=== PATIENT | male | born 1960 | race Caucasian/White ===

== ENCOUNTER 2022-07-27 17:04 | Outpatient (CLI) | payer BC, SELFPAY ==
[2022-07-27 17:13] VITALS: BP 105/70; PULSE 68; RESP 20; TEMP 36.2; O2SAT 95
[2022-07-27 18:00] VITALS: PULSE 60; O2SAT 99
--- NOTE | 2022-07-27 18:00 | PDOC.PAIN_ITS ---
Pain Clinic Procedure Note Procedure Note Procedure Note: ULTRASOUND GUIDED BILATERAL GLUTEUS MEDIUS TENDON NEEDLING Pre-Procedural Evaluation: Celestino Zepeda has been referred to the [facility] for an Ultrasound Guided bilateral gluteus medius tendon needling injection for a chief complaint of bilateral lateral hip pain. Pre-procedure Pain Score: 6/10 Dx: Bilateral Gluteus medius tendonopathy Patient was interviewed and the medical record reviewed. There were no medical, pharmacologic, radiographic, or other structural contraindications to preforming an ultrasound guided injection. Risks and expected side effects as well as potential benefits of the procedure were reviewed. The patient consent form was signed and witnessed. Standard time-out procedure was performed. The use of direct ultrasound visualization of the needle (rather than a non- guided injection) was required to increase patient safety by excluding inadvertent intramuscular, intratendinous, or intraneural needle placement and minimizing bleeding by avoiding osteochondral or vascular injury from the needle. Additionally, the increased accuracy of placement may increase clinical effectiveness and will allow higher diagnostic specificity when evaluating effectiveness of this injection. Procedure Description: The patient was placed in the left lateral recumbant position and automated blood pressure cuff and pulse oximeter applied for monitoring during the procedure and recorded in the medical record. Pre-injection ultrasound scanning of the area of interest was performed using linear transducer, identifying relevant anatomy, landmarks, and neurovascular structures allowing for optimal needle path. The site was then prepared in the usual sterile fashion, using thorough Chlorhexadine preparation of the skin and sterile draping. The same ultrasound transducer was then passed into the sterile field using sterile probe cover and sterile ultrasound gel. The injection target was again visualized. Skin and subcutaneous tissues were anesthetized with 2 mL of 2% Lidocaine. A Numbers; 25 guage needle inch needle was placed under live ultrasound guidance, using an in-plane approach, to the target area. After visualization of the nee dle tip at the target area, a mixture of 5 mL Meds;anesthetics local was delivered after negative aspiration for blood. I passed through the right gluteus medius tendon 20 times. Ultrasound images were captured and stored for documentation purposes. Next, the patient was placed in the right lateral recumbant position and the exact procedure was completed to the left gluteus medius muscle. Comments: He understands that he needs to avoid walking as much as possible for the next 7 days. Post-procedure Pain Score:0/10 Vital signs were stable throughout the procedure and were as recorded in the docflowsheet by the nursing staff. Follow up plans and appointments were discussed with the patient.Post procedure instruction was given as documented in nursing documentation and having met discharge criteria, they were discharged from the [facility]. COMMENTS: He will call with any futher questions. Jun Lucio DO, MPH [facility]
[2022-07-27] MEDS: Lidocaine 2% Multi-Dose 20 ML VIAL (18:18)
== END 2022-07-27 17:05 | disposition home or self-care (01) ==
LOC: PC 17:06
PROVIDERS: Visit Provider Preventive Medicine Occupational Medicine
DX: M76.01 Gluteal tendinitis, right hip (principal); M76.02 Gluteal tendinitis, left hip
CPT/HCPCS: 20611; J3490